=== PATIENT | female | born 1950 | race Caucasian/White ===

== ENCOUNTER 2019-11-17 23:47 | Inpatient (IN) | payer MEDICARE ==
[2019-11-18 00:38] LABS: #Lymphocytes 1.1 thou/uL (1.20-3.40); #Monocytes 0.6 thou/uL (0.11-0.59); #Neutrophils 12.6 thou/uL (1.40-6.50); %Basophils 0.2 % (0.0-1.0); %Lymphocytes 7.8 % (21.0-51.0); Hemoglobin 15.3 g/dL (12.0-16.0); Mean Corpuscular HGB CONC 33.9 g/dL (32.0-36.0); Mean Corpuscular Hemoglobin 30.8 pg (27.0-31.0); Mean Corpuscular Volume 90.9 fL (78.0-98.0); Platelet Count 296 thou/uL (130-400); RBC Distribution Width 12.4 % (11.5-14.5); Red Blood Cell (RBC) Count 4.98 mill/uL (4.20-5.40); White Blood Cell (WBC) Count 14.3 thou/uL (4.8-10.8)
[2019-11-18] MEDS ORDERED: Morphine 4 MG/ML VIAL ONE ×2 (00:56→02:58)
[2019-11-18] MEDS ORDERED: Ondansetron PF 4 MG/2 ML Vial ONE ×2 (00:56→02:58)
[2019-11-18 01:03] LABS: ALT (SGPT) 157 U/L (8-55); AST (SGOT) 139 U/L (5-34); Albumin 4.4 g/dL (3.4-4.8); Alkaline Phosphatase 87 U/L (40-110); Anion Gap 16 mmol/L (10-20); BUN (Urea Nitrogen) 15 mg/dL (9.8-20.1); Bilirubin, Total 0.9 mg/dL (0.2-1.2); Calc. Creatinine Clearance 0 mL/min (70-130); Calcium 9.4 mg/dL (7.8-10.44); Carbon Dioxide 19 mmol/L (23-31); Chloride 105 mmol/L (98-107); Estimated GFR-MDRD 79; Globulin 3.2 g/dL (2.4-3.5); Glucose 164 mg/dL (80-115); Potassium 3.8 mmol/L (3.5-5.1); Protein, Total 7.6 g/dL (6.0-8.3); Sodium 136 mmol/L (136-145)
[2019-11-18] MEDS ORDERED: Aztreonam 1 GM in Sodium Chloride 0.9% 100 ML IVPB ONE (05:45)
[2019-11-18] MEDS ORDERED: Ondansetron ODT 4 MG TAB SL PRN (05:58)
[2019-11-18] MEDS ORDERED: Ondansetron PF 4 MG/2 ML Vial IVP PRN (05:58)
[2019-11-18 06:00] VITALS: BMI 39.9
[2019-11-18] MEDS: Sodium Chloride 0.9% 1,000 ML IV SCH ×5 (06:19→21:50)
[2019-11-18] MEDS: Morphine 4 MG/ML VIAL SLOW IVP PRN ×2 (06:47→11:39)
--- NOTE | 2019-11-18 07:12 | RAD ---
CHEST 1 VIEW: Date: 11/18/2019 INDICATION: History of vomiting and epigastric abdominal pain. COMPARISON: Prior exam dated 04/17/2014. FINDINGS: Lungs are clear. Heart size is normal. No acute osseous abnormality is evident. No pleural effusion o r pneumothorax evident. IMPRESSION: No acute cardiopulmonary abnormality. POS: BH
--- NOTE | 2019-11-18 08:07 | CT ---
CT OF THE ABDOMEN AND PELVIS WITH IV CONTRAST: INDICATION: History of epigastric abdominal pain. COMPARISON: None. FINDINGS: There is mild bibasilar atelectasis. There is an 8 mm hypodensity within the right hepatic lobe suspicious for a tiny cyst. There are gallstones within the gallbladder. There is gallbladder wall thickening. There is slight prominence of the common bile duct measuring up to 5.8 mm. There is a 2.7 mm calculus within the dis janet common bile duct seen on image 39 series 2 and image 72 of the coronal series. There is edema catherine rrounding the pancreas as well as within the anterior perirenal space suspicious for pancreatitis. The spleen, adrenal glands, and kidneys appear within normal limits. There are mild vascular calcifications involving the abdominal aorta. Scattered diverticula involving the colon without evidence of active diverticulitis. There is a norm al appendix in the right lower quadrant of the abdomen. The small bowel is normal appearing. Reproductive structures, bladder, rectum, and perirectal soft tissues are unremarkable appearing. There is scattered degenerative and osteoarthritic change. No definite acute osseous abnormality is evident. IMPRESSION: 1. Cholelithiasis with gallbladder wall thickening suspicious for acute calculus cholecystitis. Rig ht upper quadrant ultrasound may be helpful for further characterization. 2. Small 2.7 mm stone involving the distal common bile duct near the ampulla with changes of acute p ancreatitis is suspicious for gallstone pancreatitis. No drainable fluid collection is evident. 3. Colonic diverticulosis. POS: BH
[2019-11-18] MEDS ORDERED: Sodium Chloride 0.9% 1,000 ML IV SCH (10:15)
--- NOTE | 2019-11-18 10:44 | PDOC.GSPN ---
Surgery Progress Note: Subj - Subjective Patient reports: nausea, still having pain (69 yo female with h/o asthma & migraine headaches presented to ED last night with n/v, & upper abdominal/upper back pain that began after eating cauliflower. CT from ED showed evidence of cholelithiasis, pancreatitis, cholecystitis, choledocolithiasis. Still with mild nausea & intermittent vomiting. Current pain / & located primarily in the upper back & upper abdominal area. Denies chest pain, palpitations, sob/wheezing/dyspnea, diarrhea.) Surgery Progress Note: Obj - Vital signs Vital signs: Vital Signs - Most Recent Temp Pulse Resp BP Pulse Ox 97.6 F 88 18 127/72 93 L 11/18/19 07:29 11/18/19 07:29 11/18/19 07:29 11/18/19 07:29 11/18/19 07:29 - Physical Exam General: well developed, moderate pain, obese Cardiovascular: regular rate and rhythm Respiratory: clear to auscultation, normal expansion, normal respiratory effort Abdomen: nondistended (Abdomen soft, but diffusely TTP with RUQ/LUQ being the most tender areas. No masses, no rebound.), positive bowel sounds Psychiatric: memory intact, speech is normal Surgery Progress Note: Results - Labs Result Diagrams: 11/18/19 00:31 Lab results: Laboratory Results - last 24 hr 11/18/19 11/18/19 11/18/19 00:31 00:31 00:31 WBC 14.3 H RBC 4.98 Hgb 15.3 Hct 45.3 MCV 90.9 MCH 30.8 MCHC 33.9 RDW 12.4 Plt Count 296 MPV 8.0 Neutrophils % 88.0 H Lymphocytes % 7.8 L Monocytes % 4.0 Eosinophils % 0.0 Basophils % 0.2 Neutrophils # 12.6 H Lymphocytes # 1.1 L Monocytes # 0.6 H Eosinophils # 0.0 Basophils # 0.0 Troponin I Less than 0.010 Lipase 7726 H Surgery Progress Note: A/P - Problem (1) Cholecystitis with cholelithiasis Current Visit: Yes Code(s): K80.10 - CALCULUS OF GALLBLADDER W CHRONIC CHOLECYST W/O OBSTRUCTION Status: Acute (2) Pancreatitis Current Visit: Yes Code(s): K85.90 - ACUTE PANCREATITIS WITHOUT NECROSIS OR INFECTION, UNSP Status: Acute (3) Choledocholithiasis with acute cholecystitis Current Visit: Yes Code(s): K80.42 - CALCULUS OF BILE DUCT W ACUTE CHOLECYSTITIS W/O OBSTRUCTION Status: Acute - Plan Plan: 69 yo female with cholelithiasis with choledocolithiasis leading to pancreatitis & cholecystitis. Will maintain NPO & await GI input for consideration of ERCP. Anticipate cholecystecomy in near future. Will continue nausea & pain control.
[2019-11-18 11:01] LABS: #Monocytes 0.7 thou/uL (0.11-0.59); #Neutrophils 11.7 thou/uL (1.40-6.50); %Basophils 0.2 % (0.0-1.0); %Lymphocytes 7.1 % (21.0-51.0); %Monocytes 5.1 % (0.0-10.0); %Neutrophils 87.5 % (42.0-75.0); Hemoglobin 13.6 g/dL (12.0-16.0); Mean Corpuscular HGB CONC 33.4 g/dL (32.0-36.0); Mean Corpuscular Hemoglobin 30.8 pg (27.0-31.0); Mean Corpuscular Volume 92.1 fL (78.0-98.0); Mean Platelet Volume 8.3 fL (7.4-10.4); Platelet Count 281 thou/uL (130-400); RBC Distribution Width 12.5 % (11.5-14.5); Red Blood Cell (RBC) Count 4.43 mill/uL (4.20-5.40); White Blood Cell (WBC) Count 13.3 thou/uL (4.8-10.8)
[2019-11-18 11:20] LABS: Anion Gap 13 mmol/L (10-20); BUN (Urea Nitrogen) 15 mg/dL (9.8-20.1); Calc. Creatinine Clearance 105 mL/min (70-130); Carbon Dioxide 24 mmol/L (23-31); Chloride 107 mmol/L (98-107); Estimated GFR-MDRD 77; Potassium 3.8 mmol/L (3.5-5.1); Sodium 140 mmol/L (136-145)
[2019-11-18 11:21] LABS: ALT (SGPT) 111 U/L (8-55); AST (SGOT) 68 U/L (5-34); Albumin 3.9 g/dL (3.4-4.8); Alkaline Phosphatase 76 U/L (40-110); Bilirubin, Total 0.8 mg/dL (0.2-1.2); Calcium 8.3 mg/dL (7.8-10.44); Globulin 2.7 g/dL (2.4-3.5); Glucose 153 mg/dL (80-115); Protein, Total 6.6 g/dL (6.0-8.3)
[2019-11-18 11:34] LABS: Lipase 2152 U/L (8-78)
[2019-11-18] MEDS ORDERED: PROVENTIL INHALER 6.7 G (200 INHALATIONS) INH PRN (13:24)
[2019-11-18] MEDS ORDERED: Iopamidol-370 76% 500 ML 1 ML ONE (13:52)
[2019-11-18] MEDS ORDERED: Morphine 4 MG/ML VIAL SLOW IVP PRN (15:24)
[2019-11-18] MEDS: MEROPENEM 1 GM/50 ML 1 GM in Premix Bag 1 BAG IVPB SCH ×2 (17:42→23:33)
--- NOTE | 2019-11-18 17:45 | HP ---
CHIEF COMPLAINT: Pancreatitis. HISTORY OF PRESENT ILLNESS: This is a 69-year-old female, who presents with a 2-day history of epigastric pain associated with nausea and vomiting. Pain is described as 8/10, mostly in the epigastric area diffuse abdomen as well. She notes previous occasional right upper quadrant pain after heavy meals, but no previous known history of gallstones, jaundice, or pancreatitis. She is hemodynamically stable. PAST MEDICAL HISTORY: Includes asthma. PAST SURGICAL HISTORY: Left mastectomy, tonsillectomy. MEDICATIONS: Medicines taken daily, none. ALLERGIES: KEFLEX. SOCIAL HISTORY: Social alcohol, not daily. Denies smoking or other drugs. REVIEW OF SYSTEMS: Ten-system review of systems is otherwise negative unless described above. PHYSICAL EXAMINATION: VITAL SIGNS: Pulse is 86, respirations 16, temperature is 98.0, O2 saturation 92% on room air, and blood pressure 129/69. CHEST: Clear. HEART: Regular rate. ABDOMEN: Soft. Tender in the epigastric area, diffuse, mildly tender. No abdominal or inguinal hernias. EXTREMITIES: No ischemia or edema to extremities. LABORATORY DATA: White blood cell count is 13, hemoglobin 13, platelet count is 281, normal differential. Sodium 140, potassium 3.8, creatinine is 0.75, AST and ALT are 68 and 111. Total bilirubin is normal. Lipase down to [address] scan shows cholelithiasis, gallbladder wall thickening, 2.7 mm stone in the distal common bile duct near the ampulla, changes consistent with acute pancreatitis. ASSESSMENT: Pancreatitis, secondary to gallstones. PLAN: IV fluids, n.p.o. except sips of water. Continue to resuscitate with IV fluids. Suspect her pancreatitis is going to resolve. She will then have laparoscopic cholecystectomy with intraoperative cholangiogram before discharge to prevent recurrence. Job ID: [id number]
[2019-11-18] MEDS: Promethazine HCl 12.5 MG in Sodium Chloride 0.9% 50 ML IVPB PRN (19:10)
--- NOTE | 2019-11-18 22:21 | CON ---
DATE OF CONSULTATION: REASON FOR CONSULTATION: Pancreatitis. HISTORY OF PRESENT ILLNESS: Ms. Mitchell came to the hospital last night for epigastric pain, was found to have elevated lipase and a CAT scan. The CAT scan report is not available for review. In talking with the radiologist, he did not really see any pancreatitis, but apparently there was a 2 or 3 mm stone in the distal common bile duct and some gallstones present. The patient was admitted to Dr. Kraus's service, had quite a bit of pain and nausea through the night. She was getting fluids at 150 mL an hour. She is doing a little bit better now. She has had voided a couple times since she has been in. She notes that for several years, she has had a "indigestion" with epigastric tightness after meals, sometimes right away, sometimes 3 hours later, lasts up to a few minutes to several hours. She has never had it evaluated, but this pain was very different. It was more severe and radiated to her back and shoulders. PAST MEDICAL HISTORY: She notes a history of hyperlipidemia, asthma, breast cancer. PAST SURGICAL HISTORY: Left mastectomy, tonsillectomy. SOCIAL HISTORY: She drinks wine anywhere from 0 glasses to 2 drinks a day. She does not smoke. She does not use drugs. ALLERGIES: KEFLEX, PENICILLIN. SHE STATES SHE IS ALLERGIC TO BEEF. MEDICATIONS: At home reportedly none. Albuterol is listed by the nurses. MEDICATIONS: Here, albuterol, meropenem, morphine, ranitidine, normal saline at 350 mL an hour. REVIEW OF SYSTEMS: No chest pain, dysuria, frequency, urgency. She had vomiting earlier today. PHYSICAL EXAMINATION: VITAL SIGNS: Temperature 98, pulse 86, respirations 16, O2 saturation 92% to 94%, blood pressure 129/69. GENERAL: She is sitting comfortably in bed. She is in no distress. HEENT: Oropharynx is slightly pale. LUNGS: Clear. HEART: Regular rate and rhythm. ABDOMEN: Mildly tender in the epigastrium with voluntary guarding, but no rebound. There is no palpable hepatosplenomegaly. LABORATORY DATA: White count 14.3 at midnight tonight. Last night, her hemoglobin was 15.3, it has come down to 13.6 at 10:44 with a white count of 13. Chemistries none available from last night for me to review as apparently [employer] is down and it has not been up in the computer or the chart at 10:44 today. Electrolytes normal with a BUN and creatinine of 15 and 0.75, calcium 8.3, bilirubin 0.8, AST and ALT 68 and 111. Lipase is 2152, apparently last night was 7226. ASSESSMENT: 1. This patient has what appears to be biliary pancreatitis, although I cannot confirm the CT scan findings because I cannot see the CT scan. I talked with the radiologist. They felt there were stones there and some stones in the duct, but no overt pancreatitis. A CT report is not available. 2. History of hyperlipidemia. She states she has not been on medications for this. 3. Abdominal pain, improved. RECOMMENDATIONS: 1. Ulcer prophylaxis with PPI. 2. Continue IV fluids. After this liter is over, would go back down to 150 an hour. 3. Recheck labs in the morning. 4. With regard to choledocholithiasis, she will improve if her liver tests continue to improve. She has probably passed the stone and she could have a lap chu with IOC. If her LFTs bounce back up, she may need an ERCP. We will follow along with you. Job ID: [id number]
--- NOTE | 2019-11-18 22:31 | PDOC.EVN ---
Event Note - Event Note Event Note: Note dictated. Full code. DPOA - spouse
--- NOTE | 2019-11-18 22:57 | CON ---
DATE OF CONSULTATION: 11/18/2019 REASON FOR CONSULTATION: Medical management. HISTORY OF PRESENT ILLNESS: The patient is a 69-year-old white female, who presented to the emergency room with epigastric discomfort along with nausea and vomiting. Her abdominal pain was sharp, localized, most severe in the epigastric region, 10/10, associated with nausea and vomiting. The food was making the pain worse. She denies any relieving factor. OBJECTIVE: VITAL SIGNS: In the emergency room, showed temperature 97.6 with pulse rate of 85, blood pressure of 146/95, O2 saturations 98% on room air. GENERAL: A 69-year-old female, in mild distress due to epigastric discomfort. LUNGS: Clear to auscultation bilaterally. No wheezing, rales, or rhonchi. HEART: S1, S2 present. Regular rate and rhythm. No rubs or gallops. ABDOMEN: Soft. Bowel sounds present. There is significant tenderness in the epigastric area. No rebound or guarding. EXTREMITIES: No edema or calf tenderness. NEUROLOGIC: Nonfocal. CURRENT MEDICATIONS: Reviewed. REVIEW OF SYSTEMS: As discussed above. No chest pain, palpitations, syncope, or focal neurologic deficit reported. DIAGNOSTIC TESTS: Chest x-ray by my review was negative for acute findings. CT scan of the abdomen and pelvis showed cholelithiasis with gallbladder wall thickening suspicious for acute calculous cholecystitis. There was a small 2.7 mm stone involving the distal common bile duct near the ampulla with changes of acute pancreatitis. It also showed colonic diverticulosis. IMPRESSION: 1. Sepsis due to acute gallstone pancreatitis. 2. Choledocholithiasis. 3. Abnormal LFTs secondary to #1. 4. Mild intermittent asthma. 5. Dehydration. 6. Chronic kidney disease stage 2. PLAN: The patient is currently admitted on the surgical floor under General Surgery. We will continue n.p.o. status. We will continue IV fluids. We will add meropenem. GI prophylaxis. Pain control with morphine. Phenergan as needed for nausea. N.p.o. except for ice chips. We will recheck labs in a.m., walking program. The patient and the family understand the plan of care. Job ID: [id number]
[2019-11-19] MEDS: Sodium Chloride 0.9% 1,000 ML IV SCH ×3 (00:31→07:29)
[2019-11-19] MEDS: Promethazine HCl 12.5 MG in Sodium Chloride 0.9% 50 ML IVPB PRN (04:02)
[2019-11-19] MEDS: Morphine 2 MG/ML SYRINGE SLOW IVP PRN ×2 (04:51→20:36)
[2019-11-19 05:23] LABS: #Lymphocytes 1.8 thou/uL (1.20-3.40); #Monocytes 0.8 thou/uL (0.11-0.59); #Neutrophils 11.1 thou/uL (1.40-6.50); %Basophils 0.2 % (0.0-1.0); %Eosinophils 0.2 % (0.0-10.0); %Monocytes 5.6 % (0.0-10.0); Hemoglobin 12.3 g/dL (12.0-16.0); Mean Corpuscular HGB CONC 34.6 g/dL (32.0-36.0); Mean Corpuscular Hemoglobin 31.8 pg (27.0-31.0); Mean Corpuscular Volume 91.9 fL (78.0-98.0); Mean Platelet Volume 8.3 fL (7.4-10.4); Platelet Count 229 thou/uL (130-400); RBC Distribution Width 12.5 % (11.5-14.5); Red Blood Cell (RBC) Count 3.85 mill/uL (4.20-5.40); White Blood Cell (WBC) Count 13.7 thou/uL (4.8-10.8)
[2019-11-19 05:49] LABS: ALT (SGPT) 69 U/L (8-55); AST (SGOT) 34 U/L (5-34); Albumin 3.4 g/dL (3.4-4.8); Alkaline Phosphatase 63 U/L (40-110); Anion Gap 10 mmol/L (10-20); BUN (Urea Nitrogen) 10 mg/dL (9.8-20.1); Bilirubin, Total 0.6 mg/dL (0.2-1.2); Calc. Creatinine Clearance 118 mL/min (70-130); Calcium 7.7 mg/dL (7.8-10.44); Carbon Dioxide 21 mmol/L (23-31); Chloride 111 mmol/L (98-107); Estimated GFR-MDRD 88; Globulin 2.6 g/dL (2.4-3.5); Glucose 119 mg/dL (80-115); Lipase 380 U/L (8-78); Magnesium 1.7 mg/dL (1.6-2.6); Potassium 3.7 mmol/L (3.5-5.1); Sodium 138 mmol/L (136-145)
[2019-11-19] MEDS ORDERED: Ondansetron PF 4 MG/2 ML Vial IVP PRN (08:58)
--- NOTE | 2019-11-19 09:14 | PRG ---
DATE OF SERVICE: 11/19/2019 SUBJECTIVE: Ms. Mitchell is still complaining of back pain and abdominal pain. Her labs are improved. She is hemodynamically stable. She is complaining of 8/10 sharp back pain. She has not really been much ambulatory. OBJECTIVE: VITAL SIGNS: Her pulse is 94, respirations 18, she is 92% on room air, blood pressure 140/67. Urine output; she has voided multiple times. ABDOMEN: Soft, tender epigastric, diffuse mildly tender, slightly improved exam from yesterday. LABORATORY DATA: Her white cell count is 13, hemoglobin is 12. Sodium 138, potassium 2.7, creatinine 0.67. Liver tests are normal except for elevated ALT at 69. Her lipase is down to 380. ASSESSMENT: Gallstone pancreatitis, improving labs, but still with persistent clinical pain. PLAN: Keep n.p.o. Continue IV fluids. My plan is likely laparoscopic cholecystectomy with intraoperative cholangiogram on Sunday. If her pain is clinically improved tomorrow, probably allow for clear liquids. Job ID: [id number]
[2019-11-19] MEDS: MEROPENEM 1 GM/50 ML 1 GM in Premix Bag 1 BAG IVPB SCH ×3 (09:39→23:25)
[2019-11-19] MEDS: Pantoprazole 40 MG VIAL IVP SCH (09:40)
[2019-11-19] MEDS: Saccharomyces boulardii 250 MG CAP PO SCH (09:41)
[2019-11-19] MEDS: D5 1/2 NS w/20 mEq KCL 1,000 ML IV SCH ×3 (10:43→21:59)
[2019-11-19] MEDS: Morphine 4 MG/ML VIAL SLOW IVP PRN ×2 (10:44→14:53)
--- NOTE | 2019-11-19 11:45 | PDOC.HOSPP ---
- Subjective Encounter Date: 11/18/19 Encounter Time: 13:00 Subjective: Patient seen and examined for cholecystitis and pancreatitis secondary to biliary obstruction. Reports epigastric abdominal pain and nausea, last vomited at 1000. Consulted for medical management. - Objective Vital Signs & Weight: Vital Signs (12 hours) Temp Pulse Resp BP Pulse Ox 11/19/19 11:03 98.0 F 82 18 128/74 95 11/19/19 07:18 98.7 F 94 18 140/67 92 L 11/19/19 04:19 99.1 F 99 18 128/66 92 L 11/19/19 00:01 98.9 F 90 16 132/69 92 L Weight Weight 204 lb 12.8 oz I&O: 11/18/19 11/19/19 11/20/19 06:59 06:59 06:59 Intake Total 1800 Balance 1800 Result Diagrams: 11/19/19 05:03 11/19/19 05:03 Additional Labs: Accuchecks 11/18/19 16:52 POC Glucose 121 H Laboratory Tests 11/18/19 11/18/19 00:31 10:44 Glucose 153 H AST 68 H ALT 111 H Lipase 7726 H 2152 H EKG Reviewed by me: Yes Hospitalist ROS - Review of Systems Constitutional: denies: fever, chills, sweats, weakness, malaise, other Respiratory: denies: cough, dry, shortness of breath, hemoptysis, SOB with excertion, pleuritic pain, sputum, wheezing, other Cardiovascular: denies: palpitations, paroxysmal noc. dyspnea, edema Gastrointestinal: reports: nausea, vomiting, abdominal pain. denies: diarrhea, constipation, melena, hematochezia Genitourinary: denies: dysuria, frequency, incontinence, hematuria, retention, other Skin: denies: rash, lesions, andrzej, bruising, other Neurological: denies: weakness, numbness, incoordination, change in speech, confusion, seizures, other - Medication Medications: Active Medications Generic Name Dose Route Start Last Admin Trade Name Freq PRN Reason Stop Dose Admin Promethazine HCl 12.5 mg/ 50.5 mls @ 202 mls/hr 11/18/19 13:27 11/19/19 04:02 Sodium Chloride IVPB 50.5 mls Q6H PRN Administration Nausea/Vomiting Meropenem 1 gm/ Device 50 mls @ 100 mls/hr 11/18/19 16:00 11/19/19 09:39 IVPB 50 mls 0800,1600,2359 HITESH Administration Potassium Chloride/Dextrose/Sod Cl 1,000 mls @ 125 mls/hr 11/19/19 09:45 09/26 10:43 D5 1/2 Ns W/20 Meq Kcl IV 1,000 mls .Q8H HITESH Administration Morphine Sulfate 2 mg 11/18/19 15:24 11/19/19 04:51 Morphine SLOW IVP 2 mg Q2H PRN Administration Moderate Pain (4-6) Morphine Sulfate 4 mg 11/19/19 08:59 11/19/19 10:44 Morphine SLOW IVP 4 mg Q2H PRN Administration Severe Pain (7-10) Pantoprazole Sodium 40 mg 11/19/19 09:00 11/19/19 09:40 Protonix IVP 40 mg DAILY HITESH Administration Saccharomyces Boulardii 250 mg 11/19/19 09:00 11/19/19 09:41 Florastor PO Not Given DAILY HITESH - Exam Heart: RRR, no murmur, no gallops, no rubs Respiratory: CTAB, no wheezes, no rales, no ronchi Gastrointestinal: soft, normal bowel sounds, tender to palpation Hosp A/P - Plan Impression: Sepsis Acute gallstone pancreatitis Acute choledocolithiasis Asthma, chronic, stable Plan: NPO IVF, zofran, add promethazine Continue pain management Change Abx to meropenem GI and general surgery consulted Continue PPI Repeat CMP, lipase and CBC Check Mg
--- NOTE | 2019-11-19 12:51 | PDOC.HOSPP ---
- Subjective Encounter Date: 11/19/19 Encounter Time: 12:49 Subjective: Patient seen and examined for pancreatitis and choledocolithiasis. Reports mild abdominal pain, nausea, denies vomiting. Reports she is feeling much better since admission. No overnight events. - Objective Vital Signs & Weight: Vital Signs (12 hours) Temp Pulse Resp BP Pulse Ox 11/19/19 11:03 98.0 F 82 18 128/74 95 11/19/19 07:18 98.7 F 94 18 140/67 92 L 11/19/19 04:19 99.1 F 99 18 128/66 92 L Weight Weight 204 lb 12.8 oz I&O: 11/18/19 11/19/19 11/20/19 06:59 06:59 06:59 Intake Total 1800 Balance 1800 Result Diagrams: 11/19/19 05:03 11/19/19 05:03 Additional Labs: Accuchecks 11/18/19 16:52 POC Glucose 121 H Hospitalist ROS - Review of Systems Respiratory: denies: cough, dry, shortness of breath, hemoptysis, SOB with excertion, pleuritic pain, sputum, wheezing, other Cardiovascular: denies: chest pain, palpitations, orthopnea, paroxysmal noc. dyspnea, edema, light headedness, other Gastrointestinal: reports: nausea, abdominal pain. denies: vomiting, diarrhea, melena, hematochezia Genitourinary: denies: dysuria, frequency, hematuria - Medication Medications: Active Medications Generic Name Dose Route Start Last Admin Trade Name Freq PRN Reason Stop Dose Admin Promethazine HCl 12.5 mg/ 50.5 mls @ 202 mls/hr 11/18/19 13:27 11/19/19 04:02 Sodium Chloride IVPB 50.5 mls Q6H PRN Administration Nausea/Vomiting Meropenem 1 gm/ Device 50 mls @ 100 mls/hr 11/18/19 16:00 11/19/19 09:39 IVPB 50 mls 0800,1600,2359 HITESH Administration Potassium Chloride/Dextrose/Sod Cl 1,000 mls @ 125 mls/hr 11/19/19 09:45 09/26 10:43 D5 1/2 Ns W/20 Meq Kcl IV 1,000 mls .Q8H HITESH Administration Morphine Sulfate 2 mg 11/18/19 15:24 11/19/19 04:51 Morphine SLOW IVP 2 mg Q2H PRN Administration Moderate Pain (4-6) Morphine Sulfate 4 mg 11/19/19 08:59 11/19/19 10:44 Morphine SLOW IVP 4 mg Q2H PRN Administration Severe Pain (7-10) Pantoprazole Sodium 40 mg 11/19/19 09:00 11/19/19 09:40 Protonix IVP 40 mg DAILY HITESH Administration Saccharomyces Boulardii 250 mg 11/19/19 09:00 11/19/19 09:41 Florastor PO Not Given DAILY HITESH - Exam General Appearance: NAD, awake alert Heart: RRR, no murmur, no gallops, no rubs Respiratory: CTAB, no wheezes, no rales, no ronchi Gastrointestinal: soft, tender to palpation (mildly tender to deep palpation, negative kingston sign) Hosp A/P - Plan Impression: Sepsis Acute gallstone pancreatitis Acute choledocolithiasis Asthma, chronic, stable Plan: continue NPO change IVF Continue antiemetics and analgesics Continue antibiotics Replace magnesium Possible lap chu Sunday per patient Repeat CMP, lipase and CBC Recheck Mg
--- NOTE | 2019-11-19 12:58 | PRG ---
DATE OF SERVICE: 11/19/2019 SUBJECTIVE: Ms. Mitchell says she is feeling a bit better today. Abdominal discomfort is well controlled, though it still acts up if she palpates the area or moves around too much. There has been no nausea or vomiting, and she has remained hemodynamically stable. Lipase is down and LFTs are satisfactory. OBJECTIVE: VITAL SIGNS: Temperature 98.0, pulse 82, blood pressure is 128/74, and 95% oxygen saturation on room air. GENERAL: No acute distress. HEART: Regular rate and rhythm. LUNGS: Clear to auscultation bilaterally. ABDOMEN: Bowel sounds are present though hypoactive. Soft. Some tenderness to palpation in the epigastrium, but no guarding or rebound tenderness. EXTREMITIES: No peripheral edema. LABORATORY STUDIES: Sodium 138, potassium 3.7, BUN 10, creatinine 0.67, total bilirubin 0.6, alkaline phosphatase 63, AST 34, ALT 69, lipase 380. IMAGING STUDIES: Abdominal ultrasound was evidently performed on admission, but [facility]. Evidently, findings were suspicious for common bile duct stone. ASSESSMENT AND PLAN: 1. Gallstone pancreatitis. 2. Cholelithiasis. Clinically, her pancreatitis appears to be improving. She has had adequate resuscitation and remains hemodynamically stable. I discussed the case with Dr. Fuentes. My understanding is that cholecystectomy will be planned for later this admission. I do note there was some concern for choledocholithiasis based on imaging and presentation, but with transaminases downtrending, normal bilirubin, only very mild elevation in ALT, I have low concern for any biliary obstructive process. She may have passed a stone. I would recommend that intraoperative cholangiogram be performed at the time of cholecystectomy. If this was positive, then we would proceed with ERCP thereafter. I discussed this with the patient, who expresses understanding. GI can continue to follow along. Please call anytime with questions or concerns. Job ID: [id number]
[2019-11-19] MEDS ORDERED: Magnesium 2 GM/50 ML 2 GM in Premix Bag 1 BAG IVPB SCH ×2 (13:30→16:00)
[2019-11-20] MEDS: Morphine 2 MG/ML SYRINGE SLOW IVP PRN ×2 (02:20→04:26)
[2019-11-20] MEDS: D5 1/2 NS w/20 mEq KCL 1,000 ML IV SCH ×4 (02:25→23:52)
[2019-11-20 05:11] LABS: #Lymphocytes 1.8 thou/uL (1.20-3.40); #Monocytes 0.9 thou/uL (0.11-0.59); #Neutrophils 8.9 thou/uL (1.40-6.50); %Basophils 0.1 % (0.0-1.0); %Eosinophils 0.4 % (0.0-10.0); %Lymphocytes 15.3 % (21.0-51.0); %Monocytes 7.6 % (0.0-10.0); %Neutrophils 76.7 % (42.0-75.0); Hemoglobin 11.3 g/dL (12.0-16.0); Mean Corpuscular HGB CONC 32.9 g/dL (32.0-36.0); Mean Corpuscular Hemoglobin 30.8 pg (27.0-31.0); Mean Corpuscular Volume 93.7 fL (78.0-98.0); Mean Platelet Volume 8.2 fL (7.4-10.4); Platelet Count 199 thou/uL (130-400); RBC Distribution Width 12.5 % (11.5-14.5); Red Blood Cell (RBC) Count 3.69 mill/uL (4.20-5.40); White Blood Cell (WBC) Count 11.7 thou/uL (4.8-10.8)
[2019-11-20 05:44] LABS: Anion Gap 9 mmol/L (10-20); Chloride 106 mmol/L (98-107); Potassium 3.7 mmol/L (3.5-5.1); Sodium 132 mmol/L (136-145)
[2019-11-20 05:45] LABS: ALT (SGPT) 42 U/L (8-55); AST (SGOT) 20 U/L (5-34); Albumin 3.1 g/dL (3.4-4.8); Alkaline Phosphatase 54 U/L (40-110); BUN (Urea Nitrogen) 6 mg/dL (9.8-20.1); Bilirubin, Total 0.7 mg/dL (0.2-1.2); Calc. Creatinine Clearance 136 mL/min (70-130); Calcium 7.5 mg/dL (7.8-10.44); Carbon Dioxide 21 mmol/L (23-31); Estimated GFR-MDRD Greater than 90; Globulin 2.5 g/dL (2.4-3.5); Glucose 186 mg/dL (80-115); Lipase 49 U/L (8-78); Magnesium 1.9 mg/dL (1.6-2.6); Protein, Total 5.6 g/dL (6.0-8.3)
[2019-11-20] MEDS: Morphine 4 MG/ML VIAL SLOW IVP PRN ×3 (08:05→18:41)
[2019-11-20] MEDS: MEROPENEM 1 GM/50 ML 1 GM in Premix Bag 1 BAG IVPB SCH ×3 (08:05→23:52)
[2019-11-20] MEDS: Pantoprazole 40 MG VIAL IVP SCH (08:09)
[2019-11-20] MEDS: Saccharomyces boulardii 250 MG CAP PO SCH (08:09)
--- NOTE | 2019-11-20 11:53 | PDOC.HOSPP ---
- Subjective Encounter Date: 11/20/19 Encounter Time: 10:30 Subjective: Patient seen and examined for sepsis, choledocolithiasis and gallstone pancreatitis. Says she is feeling much better. Ambulated without any problems. Denies any CP, SOB, abdominal pain, n/v. No new complaints. No overnight events. - Objective Vital Signs & Weight: Vital Signs (12 hours) Temp Pulse Resp BP Pulse Ox 11/20/19 07:22 98.3 F 86 16 149/70 H 94 L 11/20/19 03:23 99.1 F 85 16 133/63 92 L 11/20/19 00:05 98.9 F Weight Weight 204 lb 12.8 oz I&O: 11/19/19 11/20/19 11/21/19 06:59 06:59 06:59 Intake Total 1800 3000 Balance 1800 3000 Result Diagrams: 11/20/19 04:58 11/20/19 04:57 Hospitalist ROS - Review of Systems Constitutional: denies: fever, chills, sweats, weakness, malaise, other Respiratory: denies: cough, dry, shortness of breath, hemoptysis, SOB with excertion, pleuritic pain, sputum, wheezing, other Cardiovascular: denies: chest pain, palpitations, orthopnea, paroxysmal noc. dyspnea, edema, light headedness, other Gastrointestinal: denies: nausea, vomiting, abdominal pain, diarrhea, constipation, melena, hematochezia, other - Medication Medications: Active Medications Generic Name Dose Route Start Last Admin Trade Name Freq PRN Reason Stop Dose Admin Albuterol Sulfate 2 puff 11/18/19 13:24 11/19/19 20:13 Proventil Hfa INH 2 puff Q4H PRN Administration SOB &/or Wheezing Promethazine HCl 12.5 mg/ 50.5 mls @ 202 mls/hr 11/18/19 13:27 11/19/19 04:02 Sodium Chloride IVPB 50.5 mls Q6H PRN Administration Nausea/Vomiting Meropenem 1 gm/ Device 50 mls @ 100 mls/hr 11/18/19 16:00 11/20/19 08:05 IVPB 50 mls 0800,1600,2359 HITESH Administration Potassium Chloride/Dextrose/Sod Cl 1,000 mls @ 75 mls/hr 11/20/19 09:02 11/20 09:14 D5 1/2 Ns W/20 Meq Kcl IV Not Given .[id number] HITESH Morphine Sulfate 2 mg 11/18/19 15:24 11/20/19 04:26 Morphine SLOW IVP 2 mg Q2H PRN Administration Moderate Pain (4-6) Morphine Sulfate 4 mg 11/19/19 08:59 11/20/19 08:05 Morphine SLOW IVP 4 mg Q2H PRN Administration Severe Pain (7-10) Pantoprazole Sodium 40 mg 11/19/19 09:00 11/20/19 08:09 Protonix IVP 40 mg DAILY HITESH Administration Saccharomyces Boulardii 250 mg 11/19/19 09:00 11/20/19 08:09 Florastor PO Not Given DAILY HITESH - Exam General Appearance: NAD, awake alert Eye: anicteric sclera Heart: RRR, no murmur, no gallops, no rubs Respiratory: CTAB, no wheezes, no rales, no ronchi Gastrointestinal: soft, non-tender, no guarding, no rigidity, diminished bowl sounds Psychiatric: normal affect, A&O x 3 Hosp A/P - Plan Impression: Sepsis Acute gallstone pancreatitis Acute choledocolithiasis Hyponatremia, mild Elevated blood sugar reading Asthma, chronic, stable Plan: Decreased IVF to 75mls/hr Continue NPO Continue abx, antiemetics and analgesics as needed Lap/chu tomorrow? Recheck BMP, CBC in am
--- NOTE | 2019-11-20 13:50 | PRG ---
DATE OF SERVICE: 11/20/2019 SUBJECTIVE: Ms. Mitchell feels better today. Her pain is improved. She denies nausea. She has not been up and walking much. OBJECTIVE: VITAL SIGNS: She is afebrile. Vital signs are stable. CHEST: Clear. HEART: Regular rate. ABDOMEN: Soft, diffuse, mildly tender, but no guarding or rebound. LABORATORY DATA: Liver function tests, bilirubin, and lipase all normalized. ASSESSMENT: Gallstone pancreatitis, resolved. PLAN: Laparoscopic cholecystectomy with intraoperative cholangiogram tomorrow. Risks, benefits, and alternatives discussed. She gives consent. We will do this tomorrow. Job ID: [id number]
--- NOTE | 2019-11-20 13:56 | PRG ---
DATE OF SERVICE: 11/20/2019 SUBJECTIVE: Ms. Mitchell is feeling a lot better. Her abdominal pain is much improved. There is no nausea or vomiting. She remains n.p.o. in anticipation of a cholecystectomy tomorrow. OBJECTIVE: VITAL SIGNS: Temperature 98.1, pulse 86, blood pressure 145/74, and 94% oxygen saturation on room air. GENERAL: In no acute distress. HEART: Regular rate and rhythm. LUNGS: Clear to auscultation bilaterally. ABDOMEN: Soft. Bowel sounds present. Nontender to palpation. EXTREMITIES: No peripheral edema. LABORATORY STUDIES: WBC 11.7, hemoglobin 11.3, platelets 199. Sodium 132, potassium 3.7, BUN 6, creatinine 0.58. LFTs have all normalized with total bilirubin 0.7, alkaline phosphatase 54, AST 20, and ALT down to 42. Lipase is also normalized down to 49. ASSESSMENT AND PLAN: 1. Biliary pancreatitis, clinically improved. 2. Elevated LFTs, resolved. 3. Possible choledocholithiasis, based on imaging at presentation, I suspect that she has completely passed a stone given the normalization of LFTs, and there is no longer any debris in the common bile duct. I have spoken with Dr. Kraus. He plans to take the patient for cholecystectomy with intraoperative cholangiogram tomorrow. I discussed that if the cholangiogram is positive, then we will plan for ERCP thereafter, if the scheduling tomorrow works out, potentially under same anesthesia, or if not, then the following day. The patient expresses understanding. Job ID: [id number]
[2019-11-20] MEDS: SUMAtriptan Succinate 25 MG TAB PO PRN (20:00)
[2019-11-21] MEDS: Morphine 2 MG/ML SYRINGE SLOW IVP PRN ×2 (01:23→09:30)
[2019-11-21 06:19] LABS: Anion Gap 13 mmol/L (10-20); BUN (Urea Nitrogen) 5 mg/dL (9.8-20.1); Calc. Creatinine Clearance 139 mL/min (70-130); Calcium 7.8 mg/dL (7.8-10.44); Carbon Dioxide 16 mmol/L (23-31); Chloride 107 mmol/L (98-107); Estimated GFR-MDRD Greater than 90; Glucose 132 mg/dL (80-115); Potassium 4.4 mmol/L (3.5-5.1); Sodium 132 mmol/L (136-145)
[2019-11-21 07:06] LABS: #Eosinphils 0.2 thou/uL (0.0-0.7); #Lymphocytes 1.7 thou/uL (1.20-3.40); #Monocytes 1.1 thou/uL (0.11-0.59); %Basophils 0.2 % (0.0-1.0); %Eosinophils 1.5 % (0.0-10.0); %Lymphocytes 13.1 % (21.0-51.0); %Monocytes 8.1 % (0.0-10.0); %Neutrophils 77.1 % (42.0-75.0); Hemoglobin 12.5 g/dL (12.0-16.0); Mean Corpuscular HGB CONC 33.6 g/dL (32.0-36.0); Mean Corpuscular Hemoglobin 30.7 pg (27.0-31.0); Mean Corpuscular Volume 91.3 fL (78.0-98.0); Mean Platelet Volume 8.4 fL (7.4-10.4); Platelet Count 238 thou/uL (130-400); RBC Distribution Width 12.1 % (11.5-14.5); Red Blood Cell (RBC) Count 4.08 mill/uL (4.20-5.40); White Blood Cell (WBC) Count 12.9 thou/uL (4.8-10.8)
[2019-11-21] MEDS: MEROPENEM 1 GM/50 ML 1 GM in Premix Bag 1 BAG IVPB SCH ×2 (08:22→17:24)
[2019-11-21] MEDS: SUMAtriptan Succinate 25 MG TAB PO PRN (08:22)
[2019-11-21] MEDS: Saccharomyces boulardii 250 MG CAP PO SCH (08:23)
[2019-11-21] MEDS: Pantoprazole 40 MG VIAL IVP SCH (08:23)
[2019-11-21] MEDS: Promethazine HCl 12.5 MG in Sodium Chloride 0.9% 50 ML IVPB PRN (09:25)
[2019-11-21] MEDS ORDERED: PROPOFOL 200 MG/20 ML VIAL ONE (11:12)
[2019-11-21] MEDS ORDERED: Dexamethasone 20 MG/5 ML VIAL ONE (11:12)
[2019-11-21] MEDS ORDERED: Rocuronium Bromide 10 MG/ML (10ML VIAL) ONE (11:12)
[2019-11-21] MEDS ORDERED: Metoclopramide HCl 10 MG/2 ML VIAL ONE (11:12)
[2019-11-21] MEDS ORDERED: Lidocaine 1% PF 5 ML VIAL ONE (11:12)
[2019-11-21] MEDS ORDERED: Glycopyrrolate 0.2 MG/ML 5 ML SYRINGE ONE (11:12)
[2019-11-21] MEDS ORDERED: Famotidine/PF 20 mg/2ml Vial ONE (12:54)
[2019-11-21] MEDS ORDERED: Fentanyl 100 MCG/2 ML VIAL ONE (12:54)
[2019-11-21] MEDS ORDERED: Bupivacaine PF 0.5% 30 ML VIAL ONE (13:28)
[2019-11-21] MEDS ORDERED: Iothalamate Meglumine 60% 50 ML VIAL FS ONE (13:28)
[2019-11-21] MEDS ORDERED: Lidocaine 1% w/Epinephrine 1:100K 20 ML VIAL ONE (13:28)
[2019-11-21] MEDS ORDERED: SUGAMMADEX SODIUM 200 MG/2 ML VIAL ONE (13:37)
--- NOTE | 2019-11-21 16:01 | RAD ---
INTRAOPERATIVE CHOLANGIOGRAM: 11/21/19 HISTORY: Cholecystectomy. FINDINGS/IMPRESSION: Two spot fluoroscopic intraoperative images of the right upper quadrant demonstrate changes of cholec ystectomy. There is opacification of the common duct, main hepatic ducts, and branches of the right h epatic duct and the cystic duct without filling defects. There is contrast in the secondary portion o f the duodenum and a small portion of the pancreatic duct. No filling defects are identified. POS: ANGELES
[2019-11-21] MEDS ORDERED: Promethazine HCl 25 MG/ML VIAL SLOW IVP PRN (16:08)
[2019-11-21] MEDS ORDERED: Promethazine HCl 25 MG/ML VIAL IM PRN (16:08)
[2019-11-21] MEDS ORDERED: Ondansetron HCl/PF 4 MG/2 ML Vial IVP PRN (16:08)
[2019-11-21] MEDS ORDERED: Ondansetron PF 4 MG/2 ML Vial ONE (16:32)
[2019-11-21] MEDS ORDERED: traMADol HCl 50 MG TAB PO PRN (16:52)
[2019-11-21] MEDS: D5 1/2 NS w/20 mEq KCL 1,000 ML IV SCH (17:24)
[2019-11-21] MEDS: Ketorolac Tromethamine 30 MG/ML VIAL IVP PRN (17:25)
[2019-11-21] MEDS: Acetaminophen 325 MG TAB PO SCH ×2 (19:04→23:42)
--- NOTE | 2019-11-21 22:41 | OP ---
DATE OF PROCEDURE: 11/21/2019 PREOPERATIVE DIAGNOSES: 1. Acute cholecystitis with cholelithiasis. 2. Resolved acute gallstone pancreatitis. POSTOPERATIVE DIAGNOSES: 1. Acute cholecystitis with cholelithiasis. 2. Resolved acute gallstone pancreatitis. PROCEDURES PERFORMED: 1. Laparoscopic cholecystectomy. 2. Intraoperative cholangiogram. ANESTHESIA: General endotracheal. ESTIMATED BLOOD LOSS: 50 mL. FLUIDS GIVEN: 1100 mL crystalloids. COUNTS: Sponge and instrument counts were verified as correct x2. COMPLICATIONS: None apparent at the time of operation. INDICATIONS FOR OPERATION: A 69-year-old woman was recently admitted with gallstone pancreatitis, which has since resolved. Initial radiographic studies were consistent with acute cholecystitis, cholelithiasis, and possible choledocholithiasis. Although LFTs have since normalized, this morning the patient was evaluated, had no abdominal pain. She is brought to the operating room for laparoscopic cholecystectomy with intraoperative cholangiogram. Findings are consistent with distended gallbladder in the usual anatomic location completely encased by omental adhesions. Cholangiogram also revealed no filling defects to suggest common bile duct stone. DESCRIPTION OF OPERATION: Informed consent was obtained from the patient who was brought to the operating room and placed in supine position. Following general anesthesia, abdomen was sterilely prepped and draped in usual fashion. The skin below the umbilicus was infiltrated with 0.25% Marcaine with epinephrine. A small curvilinear infraumbilical incision was made using 11 scalpel. Umbilical stalk was grasped with Jerald and elevated. Veress needle was inserted through the incision and placed in the peritoneal cavity through which the abdomen was insufflated with 3 L of CO2 gas. Intraabdominal pressure noted at 1 mmHg. Following abdominal insufflation, Veress needle was removed and a 5 mm trocar introduced using a Visiport under laparoscopy. Laparoscopy confirmed proper placement of the port, no injuries to underlying structures. Additional laparoscopy reveals the right upper quadrant completely obscured by omental adhesions. Under direct laparoscopy, a 12 mm epigastric and two 5 mm right lateral subcostal ports were placed after the overlying skin infiltrated with 0.25% Marcaine with epinephrine. Appropriate incision was made. The patient was placed in a reverse Trendelenburg position, rotated to her left. I introduced a [place] dissector with cautery using this to take down omental adhesions to expose the fundus of the gallbladder. [employer] grasper was then introduced through the right lateral subcostal port grasping the fundus of the gallbladder which was elevated cephalad. Omental adhesions were then taken down from remainder of the gallbladder with good hemostasis. A second Prestige grasper was introduced through the right medial subcostal port grasping the Ryan's pouch which was retracted laterally. The cystic duct was dissected free from the surrounding structures at the triangle of Calot. The artery was also dissected free from the surrounding structures. Critical view was obtained. The cystic duct was secured with a single clip between the cystic duct and the gallbladder. The cystic artery was divided between clips, applying 2 clips proximally and 1 clip at the junction of the cystic artery and gallbladder. I introduced a cholangiocatheter in the right upper quadrant. I then made a cystotomy proximal to the securing clip in the cystic duct. The catheter was flushed with saline and was then inserted into the cystic duct lumen securing this with 2 clips. The cholangiogram was completed under fluoroscopy with 5 mL of Conray contrast. No filling defects were noted and hepatic radicals as well as the small bowel were well visualized. Total fluoroscopy time was 7 seconds. Following cholangiography, the securing clip was removed. The catheter was removed from the peritoneal cavity. The cystic duct was then divided between clips. At this time, I applied 2 clips proximally. The gallbladder itself was removed from the liver bed using cautery and delivered off the abdominal cavity using an EndoCatch. Gallbladder fossa was oozy of venous blood. Using cautery, hemostasis was readily achieved. Operative site was irrigated clear with saline. No active bleeding or bile stains were noted. The patient's abdomen was desufflated. All ports and instruments were removed and accounted for. Skin incisions were closed using 4-0 Monocryl suture in subcuticular fashion. Dermabond was applied over incisional closure. The patient tolerated the operation without any apparent complication and was returned to recovery room in satisfactory condition. Job ID: [id number]
--- NOTE | 2019-11-21 22:42 | PDOC.HOSPP ---
- Subjective Encounter Date: 11/21/19 Encounter Time: 08:00 Subjective: Patient seen and examined for Sepsis. No CP/SOB. No fever/N/V. No new complaints. No overnight events - Objective Vital Signs & Weight: Vital Signs (12 hours) Temp Pulse Resp BP Pulse Ox 11/21/19 20:00 97.4 F L 66 16 126/62 98 11/21/19 17:09 97.9 F 83 16 157/78 H 94 L 11/21/19 11:49 98.2 F 80 14 167/79 H 94 L Weight Weight 204 lb 12.8 oz I&O: 11/20/19 11/21/19 11/22/19 06:59 06:59 06:59 Intake Total 3000 2325 725 Balance 3000 2325 725 Result Diagrams: 11/21/19 06:44 11/21/19 05:42 Hospitalist ROS - Review of Systems Respiratory: denies: cough, dry, shortness of breath, hemoptysis, SOB with excertion, pleuritic pain, sputum, wheezing, other Cardiovascular: denies: chest pain, palpitations, orthopnea, paroxysmal noc. dyspnea, edema, light headedness, other Gastrointestinal: denies: nausea, vomiting, abdominal pain, diarrhea, constipation, melena, hematochezia, other - Medication Medications: Active Medications Generic Name Dose Route Start Last Admin Trade Name Freq PRN Reason Stop Dose Admin Acetaminophen 650 mg 11/21/19 18:00 11/21/19 19:04 Tylenol PO Not Given Q6HR HITESH Albuterol Sulfate 2 puff 11/18/19 13:24 11/19/19 20:13 Proventil Hfa INH 2 puff Q4H PRN Administration SOB &/or Wheezing Promethazine HCl 12.5 mg/ 50.5 mls @ 202 mls/hr 11/18/19 13:27 11/21/19 09:25 Sodium Chloride IVPB 50.5 mls Q6H PRN Administration Nausea/Vomiting Meropenem 1 gm/ Device 50 mls @ 100 mls/hr 11/18/19 16:00 11/21/19 17:24 IVPB 50 mls 0800,1600,2359 HITESH Administration Potassium Chloride/Dextrose/Sod Cl 1,000 mls @ 75 mls/hr 11/20/19 09:02 11/21 17:24 D5 1/2 Ns W/20 Meq Kcl IV 1,000 mls .[id number] HITESH Administration Ketorolac Tromethamine 15 mg 11/21/19 16:52 11/21/19 17:25 Toradol IVP 11/26/19 16:53 15 mg Q6H PRN Administration Breakthrough Pain Ondansetron HCl 4 mg 11/19/19 08:58 11/21/19 06:44 Zofran IVP 4 mg Q6H PRN Administration Nausea/Vomiting Pantoprazole Sodium 40 mg 11/19/19 09:00 11/21/19 08:23 Protonix IVP 40 mg DAILY HITESH Administration Saccharomyces Boulardii 250 mg 11/19/19 09:00 11/21/19 08:23 Florastor PO Not Given DAILY [facility] Sodium Chloride 10 ml 11/20/19 21:00 11/21/19 08:23 Flush - Normal Saline IVF Not Given Q12HR HITESH Sumatriptan Succinate 25 mg 11/20/19 09:33 11/21/19 08:22 Imitrex PO 25 mg DAILYPRN PRN Administration Migraine Headache - Exam General Appearance: NAD Heart: RRR, no gallops Respiratory: no wheezes, no rales, no ronchi Gastrointestinal: non-tender, non-distended, normal bowel sounds Extremities: no clubbing Hosp A/P - Plan Sepsis/Acute gallstone pancreatitis Choledocolithiasis Hyponatremia, mild Asthma, chronic, stable Morbid obesity BMI 40 Plan: Cont IVF 75mls/hr NPO for Lap chu today Continue other meds as above Cont Meropenem
[2019-11-22] MEDS: MEROPENEM 1 GM/50 ML 1 GM in Premix Bag 1 BAG IVPB SCH ×2 (00:07→08:35)
[2019-11-22] MEDS: Acetaminophen 325 MG TAB PO SCH ×3 (00:08→12:07)
--- NOTE | 2019-11-22 01:28 | PRG ---
DATE OF SERVICE: 11/21/2019 SUBJECTIVE: The patient was seen this evening. She was lying in bed, comfortable. She was easily arousable. She is postoperative day #0 status post lap chu with cholangiogram by Dr. Crain. At the time of my evaluation, the patient reported she had no pain and was tolerating a clear liquid diet. She had voided previously. Nursing reported no acute events. OBJECTIVE: VITAL SIGNS: Temperature 97.4, pulse 72, respirations 16, oxygen saturation 92% on room air, blood pressure 144/77. GENERAL: Well-appearing elderly female, lying in bed with no signs of acute distress. PULMONARY: Equal chest rise and fall. No signs of acute respiratory distress. ABDOMEN: Soft, nontender, nondistended. ASSESSMENT: 1. Gallstone pancreatitis with choledocholithiasis. 2. Sepsis, resolved. 3. History of asthma. PLAN: The patient is postop day #0 status post lap cuh with cholangiogram by Dr. Crain. We will continue clear liquid diet and D5 half-normal saline at 75 an hour. Continue current pain regimen and meropenem. We will repeat blood work in the morning. We will encourage ambulation and have Walking Program work with the patient. Job ID: [id number]
[2019-11-22] MEDS: traMADol HCl 50 MG TAB PO PRN ×2 (04:59→12:51)
[2019-11-22 05:22] LABS: ALT (SGPT) 40 U/L (8-55); AST (SGOT) 28 U/L (5-34); Albumin 3.1 g/dL (3.4-4.8); Alkaline Phosphatase 65 U/L (40-110); Anion Gap 11 mmol/L (10-20); BUN (Urea Nitrogen) 10 mg/dL (9.8-20.1); Bilirubin, Direct 0.3 mg/dL (0.1-0.3); Bilirubin, Total 0.5 mg/dL (0.2-1.2); Calc. Creatinine Clearance 125 mL/min (70-130); Calcium 8.2 mg/dL (7.8-10.44); Carbon Dioxide 23 mmol/L (23-31); Chloride 107 mmol/L (98-107); Estimated GFR-MDRD Greater than 90; Glucose 160 mg/dL (80-115); Lipase 8 U/L (8-78); Potassium 4.3 mmol/L (3.5-5.1); Sodium 137 mmol/L (136-145)
[2019-11-22 05:30] LABS: Phosphorus 1.6 mg/dL (2.3-4.7)
[2019-11-22] MEDS ORDERED: PHOS-NAK 1 PKT PACK PO SCH (06:00)
[2019-11-22 06:04] LABS: Mean Corpuscular HGB CONC 34.1 g/dL (32.0-36.0); Mean Corpuscular Hemoglobin 31.5 pg (27.0-31.0); Mean Corpuscular Volume 92.4 fL (78.0-98.0); Mean Platelet Volume 8.2 fL (7.4-10.4); Platelet Count 262 thou/uL (130-400); RBC Distribution Width 12.3 % (11.5-14.5); Red Blood Cell (RBC) Count 3.81 mill/uL (4.20-5.40); White Blood Cell (WBC) Count 9.6 thou/uL (4.8-10.8)
[2019-11-22 06:24] LABS: Band 5 % (5-11); Lymphocytes 7 % (21-51); MDiff Complete? YES; Monocytes 5 % (0-10); Neutrophil 83 % (42-75)
[2019-11-22] MEDS: Ketorolac Tromethamine 30 MG/ML VIAL IVP PRN (06:35)
[2019-11-22] MEDS ORDERED: Ibuprofen 600 MG TAB PO PRN (06:39)
[2019-11-22] MEDS: Saccharomyces boulardii 250 MG CAP PO SCH (08:34)
[2019-11-22] MEDS: Pantoprazole 40 MG VIAL IVP SCH (08:35)
[2019-11-22] MEDS: D5 1/2 NS w/20 mEq KCL 1,000 ML IV SCH (08:37)
[2019-11-22 11:29] VITALS: BP 135/63; TEMP 97.4
--- NOTE | 2019-11-22 17:34 | EKG ---
Test Reason : Blood Pressure : / mmHG Vent. Rate : 080 BPM Atrial Rate : 080 BPM P-R Int : 136 ms QRS Dur : 076 ms QT Int : 390 ms P-R-T Axes : 040 007 050 degrees QTc Int : 449 ms Normal sinus rhythm with sinus arrhythmia Normal ECG Confirmed by JEFERSON HUANG M.D. ([id number]), writer editor MISAEL HAYNES ([id number]) on 11/22/2019 5:33:53 PM Referred By: Confirmed By:JEFERSON HUANG M.D.
--- NOTE | 2019-11-23 16:57 | DIS ---
DATE OF ADMISSION: 11/18/2019 DATE OF DISCHARGE: 11/22/2019 CONSULTS: 1. Gastroenterology, Dr. Chu. 2. Hospitalist[facility] for medical management. PROCEDURES: On 11/21/2019, laparoscopic cholecystectomy and cholangiogram. PRIMARY DIAGNOSES: Resolved acute gallstone pancreatitis and acute cholecystitis with cholelithiasis. SECONDARY DIAGNOSIS: Asthma. DISCHARGE MEDICATIONS: 1. Florastor 250 mg p.o. daily for 30 days. 2. Tramadol 50 mg p.o. q.6 hours p.r.n. pain #30. 3. Albuterol inhaler. 4. Acetaminophen 650 mg p.o. q.6 hours. HISTORY OF PRESENT ILLNESS AND HOSPITAL COURSE: This is a 69-year-old female, who presented with a 2-day history of epigastric pain associated with nausea and vomiting. She reports previous occasional right upper quadrant pain after heavy meals, but no known previous history of gallstones, jaundice, or pancreatitis. The patient's pain was well controlled pre and postop. On the day of discharge, the patient was evaluated by Dr. Crain. The patient had no complaints or concerns. The patient's vital signs were stable and her exam was unremarkable including cardiopulmonary and GI exam. The patient was deemed stable for discharge home. DISPOSITION: Stable. DISCHARGE INSTRUCTIONS: 1. Location: Home. 2. Diet: Regular diet as tolerated. 3. Activity: Activity as tolerated. No heavy lifting more than 20 pounds until followup appointment. May shower tomorrow. 4. Follow up: Follow up with Dr. Crain on December 04, 2019 at 10:40 a.m. Job ID: [id number]
== END 2019-11-22 13:45 | disposition home or self-care (01) | DRG 853 ==
LOC: ERS 23:47 → SURG A 11-18 03:01
PROVIDERS: ADMIT Surgery; ATTEND Surgery
PROC: 0FT44ZZ Resection of Gallbladder, Percutaneous Endoscopic Approach (ICD-10-PCS; principal; 2019-11-18)
PROC: BF141ZZ Fluoroscopy of Gallbladder, Bile Ducts and Pancreatic Ducts using Low Osmolar Contrast (ICD-10-PCS; 2019-11-18)
DX: A41.9 Sepsis, unspecified organism (principal); K85.10 Biliary acute pancreatitis without necrosis or infection; K80.00 Calculus of gallbladder with acute cholecystitis without obstruction; E87.1 Hypo-osmolality and hyponatremia; Z68.41 Body mass index [BMI] 40.0-44.9, adult; E78.5 Hyperlipidemia, unspecified; J45.20 Mild intermittent asthma, uncomplicated; E86.0 Dehydration; N18.2 Chronic kidney disease, stage 2 (mild); E66.01 Morbid (severe) obesity due to excess calories; Z88.0 Allergy status to penicillin; Z88.8 Allergy status to other drugs, medicaments and biological substances; Z85.3 Personal history of malignant neoplasm of breast
CPT/HCPCS: 36415; 36416; 47532; 71045; 74177; 80048; 80053; 80076; 83690; 83735; 84100; 84484; 85007; 85025; 85027; 93005; 94760; 96365; 96375; 96376; C9113; J1100; J1885; J2001; J2185; J2270; J2405; J2550; J2704; J2765; J3010; J3475; Q9967; S0020; S0028